=== PATIENT | female | born 1960 | race Caucasian/White ===

== ENCOUNTER → 2024-07-19 | Outpatient (CLI) | payer OTHER ==
[~2024-07-19] MED LIST: ASPIRIN E.C. 8181 MG PO; CALCIUM 600MG+D1 TAB PO; CYMBALTA 60MG60 MG PO; ELAVIL150 MG PO; IMITREX100 MG PO; Iohexol 300 - 100 ML VIAL IV ONE; LIPITOR 40MG TA40 MG PO; MASON NATURAL S1 CAP PO; NS 100 ML IV SCH; PREMARIN 0.9MG0.9 MG PO; XANAX .25M0.25 MG/TA PO
== END ==
LOC: COL.RAD 07:54
DX: G43.109 Migraine with aura, not intractable, without status migrainosus (principal); G44.229 Chronic tension-type headache, not intractable; H53.2 Diplopia
CPT/HCPCS: Q9967